=== PATIENT | male | born 1935 | race Hispanic/Latino ===

== ENCOUNTER 2022-11-26 14:41 | Inpatient (IN) | payer OTHER ==
[~2022-11-26] VITALS: Ht 182.9 cm; Wt 87.1 kg
[~2022-11-26 14:41] MED LIST: ALBU6.7H14 IH; APIX5TAB PO; CALCIUM; CARV12.511 PO; FERR324T PO; HYDR-4060 PO; LEVO100T12 PO; LOSA1TAB54 PO; PANT40TA54 PO; SOLI10TA7 PO; TAMS-1 PO; [UNRECOGNIZED DRUG - OTHER]
[2022-11-26] MEDS ORDERED: ALBUTEROL 0.083% 2.5 MG/3 ML INH IH ONE (15:30)
[2022-11-26 15:45] VITALS: PULSE 87; RESP 24
[2022-11-26 15:47] LABS: ABG BASE EXCESS 6.2 mmol/L (-2.0-3.0); ABG HCO3 35.8 mmol/L (21.0-28.0); ABG OXYGEN SATURATION 96.3 % (95.0-99.0); ABG PCO2 76 mmHg (35-48)
[2022-11-26 15:56] LABS: BASOPHILS % (AUTO) 0.2 % (0.0-5.0); EOSINOPHILS % (AUTO) 0.5 % (0.0-8.0); HEMATOCRIT 35.5 % (42-54); LYMPHOCYTES % (AUTO) 48.9 % (21.0-51.0); MEAN CORPUSCULAR HEMOGLOBIN 30.2 pg (27.0-33.0); MEAN CORPUSCULAR HGB CONC 32.1 g/dL (32.0-36.0); MEAN CORPUSCULAR VOLUME 93.9 fL (79-99); MONOCYTES % (AUTO) 5.4 % (3.0-13.0); NEUTROPHILS % (AUTO) 44.8 % (40.0-77.0); PLATELET COUNT (AUTO) 140 K/uL (130-400); RED BLOOD CELL COUNT(AUTO) 3.78 MIL/uL (4.50-6.20); RED CELL DISTRIBUTION WIDTH 15.4 % (11.0-15.5); WHITE BLOOD COUNT (AUTO) 12.3 K/uL (4.8-10.8)
[2022-11-26 16:14] LABS: B-TYPE NATRIURETIC PEPTIDE 481 pg/mL (0-100)
[2022-11-26 16:34] LABS: MAGNESIUM 1.7 mg/dL (1.80-2.40); THYROID STIMULATING HORMONE 5.38 uIU/mL (0.36-3.74)
[2022-11-26 16:55] LABS: ALBUMIN 2.8 g/dL (3.5-5.0); CREATININE 1.1 mg/dL (0.5-1.5); TOTAL PROTEIN, SERUM 5.8 g/dL (6.0-8.3)
[2022-11-26 17:15] LABS: ABG BASE EXCESS 6.1 mmol/L (-2.0-3.0); ABG HCO3 34.1 mmol/L (21.0-28.0); ABG OXYGEN SATURATION 88.4 % (95.0-99.0); ABG PCO2 64 mmHg (35-48)
[2022-11-26] MEDS ORDERED: POTASSIUM CHLORIDE 20MEQ/100ML 100 ML IV PRN (21:00)
[2022-11-26] MEDS ORDERED: FAMOTIDINE 20MG TAB PO SCH ×2 (21:00)
[2022-11-26] MEDS ORDERED: ACETAMINOPHEN 325 MG TAB PO PRN (21:00)
[2022-11-26] MEDS ORDERED: HEPARIN 5,000 UNIT VIAL SQ SCH (23:00)
[2022-11-26 23:03] VITALS: PULSE 89; RESP 23
[2022-11-26] MEDS: ALBUTEROL 0.083% 2.5 MG/3 ML INH IH SCH (23:03)
[2022-11-26 23:06] VITALS: PULSE 88; RESP 22; O2SAT 99
[2022-11-26] MEDS: CEFTRIAXONE 1G VIAL IVPB SCH (23:43)
[2022-11-27] VITALS (14 sets, daily range): BP systolic 114–137; BP diastolic 58–82; PULSE 71–85; RESP 17–24; O2SAT 91–100
[2022-11-27 02:57] LABS: APPEARANCE,URINE CLEAR (CLEAR); BILIRUBIN,URINE NEGATIVE (NEGATIVE); COLOR,URINE YELLOW (YELLOW); GLUCOSE, URINE (UA) NEGATIVE (NEGATIVE); KETONES,URINE NEGATIVE (NEGATIVE); LEUKOCYTE ESTERASE ,URINE NEGATIVE Leu/uL (NEGATIVE); NITRATE,URINE NEGATIVE (NEGATIVE); OCCULT BLOOD,URINE NEGATIVE (NEGATIVE); PH,URINE 5.5 (5.0-8.0); PROTEIN,URINE 10 mg/dL (NEGATIVE); UROBILINOGEN,URINE 0.2 mg/dL (0.2-1.0)
[2022-11-27] MEDS ORDERED: MOM30 PO (04:48)
[2022-11-27] MEDS ORDERED: LOSA1TAB37 PO (04:48)
[2022-11-27] MEDS ORDERED: TAMS-1 PO (04:48)
[2022-11-27] MEDS ORDERED: LEVO750T68 PO (04:48)
[2022-11-27] MEDS ORDERED: MIRT7.5T11 PO (04:48)
[2022-11-27] MEDS ORDERED: IPRA3AMP24 IH (04:48)
[2022-11-27] MEDS ORDERED: ACET-2247 PO (04:48)
[2022-11-27] MEDS ORDERED: CARV6.25 PO (04:48)
[2022-11-27] MEDS ORDERED: CALC-744 PO (04:48)
[2022-11-27] MEDS ORDERED: LEVO100C4 PO (04:48)
[2022-11-27] MEDS ORDERED: APIX2.5T PO (04:48)
[2022-11-27] MEDS ORDERED: MELA1TAB73 PO (04:48)
[2022-11-27] MEDS ORDERED: MULT-685 PO (04:48)
[2022-11-27 05:52] LABS: HEMATOCRIT 35.8 % (42-54); MEAN CORPUSCULAR HEMOGLOBIN 30.9 pg (27.0-33.0); MEAN CORPUSCULAR HGB CONC 32.4 g/dL (32.0-36.0); MEAN CORPUSCULAR VOLUME 95.5 fL (79-99); RED BLOOD CELL COUNT(AUTO) 3.75 MIL/uL (4.50-6.20); RED CELL DISTRIBUTION WIDTH 15.2 % (11.0-15.5)
[2022-11-27] MEDS: MAGNESIUM 2GM PREMIX 50ML 50 ML IV PRN (06:02)
[2022-11-27 06:12] LABS: ALBUMIN 2.7 g/dL (3.5-5.0); CREATININE 0.9 mg/dL (0.5-1.5); MAGNESIUM 1.7 mg/dL (1.80-2.40); POTASSIUM 4.1 mmol/L (3.5-5.1); TOTAL PROTEIN, SERUM 5.7 g/dL (6.0-8.3)
[2022-11-27 06:18] LABS: HEMOGLOBIN A1C 5.3 % (4.0-6.0)
[2022-11-27] MEDS: ALBUTEROL 0.083% 2.5 MG/3 ML INH IH SCH (06:49)
[2022-11-27] MEDS ORDERED: NON-FORMULARY MEDICATION 1 EACH (Levothyroxine Sodium (Levothyroxine) 100 MCG) PO SCH (07:30)
[2022-11-27] MEDS: CALCIUM CARB PO SCH ×2 (09:00→19:22)
[2022-11-27] MEDS ORDERED: NON-FORMULARY MEDICATION 1 EACH (Mirtazapine 7.5 MG) PO SCH (09:00)
[2022-11-27] MEDS ORDERED: MULTIVITAMIN WITH MINERALS PO SCH (09:00)
[2022-11-27] MEDS: VIT D3 PO SCH ×2 (09:00→19:22)
[2022-11-27] MEDS: MULTIVITAMIN WITH MINERALS TABLET PO SCH (09:00)
[2022-11-27] MEDS: MINERALS PO SCH ×2 (09:00→19:22)
[2022-11-27] MEDS: CARVEDILOL 6.25 MG TABLET PO SCH ×2 (09:01→21:05)
[2022-11-27] MEDS: PANTOPRAZOLE 40 MG/VIAL IVP SCH (09:02)
[2022-11-27] MEDS: TAMSULOSIN HCL 0.4 MG CAP.ER.24H PO SCH (09:02)
[2022-11-27 09:59] LABS: ABG BASE EXCESS 6.6 mmol/L (-2.0-3.0); ABG HCO3 34.5 mmol/L (21.0-28.0); ABG OXYGEN SATURATION 94.2 % (95.0-99.0); ABG PCO2 66 mmHg (35-48)
[2022-11-27] MEDS: DOXYCYCLINE 100MG+NS 250ML IV SCH ×2 (10:00→21:04)
[2022-11-27] MEDS: SOLU-MEDROL 40MG VIAL IVP SCH ×2 (10:00→18:09)
[2022-11-27] MEDS: BUDESONIDE 0.5 MG/2 ML INH IH SCH ×2 (10:22→18:55)
[2022-11-27] MEDS: IPRATROPIUM/ALBUTEROL SULFATE 3 ML SOLUTION IH SCH ×3 (11:08→23:26)
[2022-11-27 13:12] LABS: CHLORIDE,URINE RANDOM 70 mmol/L (110-250); CREATININE,URINE RANDOM 129 mg/dL (30-135); POTASSIUM,URINE RANDOM 45 mmol/L (25-125); SODIUM,URINE RANDOM 25 mmol/l (40-220)
[2022-11-27] MEDS: LOSARTAN 50 MG TABLET PO SCH (13:28)
[2022-11-27] MEDS ORDERED: BUDESONIDE 0.5 MG/2 ML INH IH SCH (18:00)
[2022-11-27] MEDS: PYRIDOXINE HCL PO SCH (19:22)
[2022-11-27] MEDS: MELATONIN PO SCH (19:22)
[2022-11-27] MEDS: APIXABAN 2.5 MG TABLET PO SCH (21:05)
[2022-11-27] MEDS: MIRTAZAPINE 15 MG TABLET PO SCH (21:07)
[2022-11-27] MEDS: CEFTRIAXONE 1G VIAL IVPB SCH (22:29)
[2022-11-27] MEDS: FUROSEMIDE 20MG VIAL IV SCH (22:29)
[2022-11-28] VITALS (14 sets, daily range): BP systolic 108–130; BP diastolic 62–80; PULSE 70–121; RESP 17–22; O2SAT 94–97
[2022-11-28] MEDS: SOLU-MEDROL 40MG VIAL IVP SCH ×3 (01:43→21:00)
[2022-11-28] MEDS: LEVOTHYROXINE 100 MCG TABLET PO SCH (05:43)
[2022-11-28] MEDS ORDERED: HALOPERIDOL INJ 5 MG/ML VIAL IM SCH (06:00)
[2022-11-28] MEDS ORDERED: HALOPERIDOL INJ 5 MG/ML VIAL IV SCH (06:00)
[2022-11-28] MEDS: IPRATROPIUM/ALBUTEROL SULFATE 3 ML SOLUTION IH SCH ×4 (06:32→23:03)
[2022-11-28] MEDS: BUDESONIDE 0.5 MG/2 ML INH IH SCH ×2 (06:34→18:34)
[2022-11-28 08:10] LABS: HEMATOCRIT 38.7 % (42-54); MEAN CORPUSCULAR HEMOGLOBIN 30.3 pg (27.0-33.0); MEAN CORPUSCULAR HGB CONC 32.3 g/dL (32.0-36.0); MEAN CORPUSCULAR VOLUME 93.9 fL (79-99); PLATELET COUNT (AUTO) 128 K/uL (130-400); RED BLOOD CELL COUNT(AUTO) 4.12 MIL/uL (4.50-6.20); RED CELL DISTRIBUTION WIDTH 15.1 % (11.0-15.5); WHITE BLOOD COUNT (AUTO) 11.6 K/uL (4.8-10.8)
[2022-11-28 08:37] LABS: MAGNESIUM 1.7 mg/dL (1.80-2.40); PHOSPHORUS 2.9 mg/dL (2.5-4.9); POTASSIUM 3.8 mmol/L (3.5-5.1); TOTAL PROTEIN, SERUM 6.2 g/dL (6.0-8.3)
[2022-11-28] MEDS: VIT D3 PO SCH ×2 (08:58→19:15)
[2022-11-28] MEDS: MINERALS PO SCH ×2 (08:58→19:15)
[2022-11-28] MEDS: CALCIUM CARB PO SCH ×2 (08:58→19:15)
[2022-11-28 09:01] LABS: LYMPHOCYTES % (MANUAL) 54 % (22-44); MAN.DIFF COMMENT-IMPRESSION MANUAL DIFFERENTIAL; MONOCYTES % (MANUAL) 2 % (2-9); REACTIVE LYMPHOCYTES 10 % (0-0); SEGMENTED NEUTROPHILS % 34 % (40-70)
[2022-11-28 09:03] LABS: PLATELET MORPHOLOGY COMMENT SLIGHTLY DECREASED
[2022-11-28] MEDS: APIXABAN 2.5 MG TABLET PO SCH ×2 (09:08→19:45)
[2022-11-28] MEDS: LOSARTAN 50 MG TABLET PO SCH (09:08)
[2022-11-28] MEDS: MULTIVITAMIN WITH MINERALS TABLET PO SCH (09:08)
[2022-11-28] MEDS: CARVEDILOL 6.25 MG TABLET PO SCH ×2 (09:09→19:45)
[2022-11-28] MEDS: DOXYCYCLINE 100MG+NS 250ML IV SCH ×2 (09:09→19:43)
[2022-11-28] MEDS: TAMSULOSIN HCL 0.4 MG CAP.ER.24H PO SCH (09:09)
[2022-11-28] MEDS: PANTOPRAZOLE 40 MG/VIAL IVP SCH (09:10)
[2022-11-28] MEDS: FUROSEMIDE 20MG VIAL IV SCH ×2 (09:10→21:00)
[2022-11-28] MEDS ORDERED: MAGNESIUM 2GM PREMIX 50ML 50 ML IV SCH (12:30)
[2022-11-28] MEDS: MAGNESIUM 2GM PREMIX 50ML 50 ML IV PRN (16:51)
[2022-11-28] MEDS: PYRIDOXINE HCL PO SCH (19:15)
[2022-11-28] MEDS: MELATONIN PO SCH (19:15)
[2022-11-28] MEDS: MIRTAZAPINE 15 MG TABLET PO SCH (19:44)
[2022-11-28] MEDS: CEFTRIAXONE 1G VIAL IVPB SCH (23:06)
[2022-11-29] VITALS (17 sets, daily range): BP systolic 101–132; BP diastolic 64–86; PULSE 57–107; RESP 16–18; O2SAT 92–98
[2022-11-29 05:06] LABS: HEMATOCRIT 37.4 % (42-54); MEAN CORPUSCULAR HEMOGLOBIN 30.3 pg (27.0-33.0); MEAN CORPUSCULAR HGB CONC 32.4 g/dL (32.0-36.0); MEAN CORPUSCULAR VOLUME 93.7 fL (79-99); RED BLOOD CELL COUNT(AUTO) 3.99 MIL/uL (4.50-6.20); RED CELL DISTRIBUTION WIDTH 15.5 % (11.0-15.5); WHITE BLOOD COUNT (AUTO) 16.5 K/uL (4.8-10.8)
[2022-11-29 05:29] LABS: ALBUMIN 2.8 g/dL (3.5-5.0); CREATININE 1.1 mg/dL (0.5-1.5); MAGNESIUM 1.6 mg/dL (1.80-2.40); PHOSPHORUS 2.8 mg/dL (2.5-4.9); POTASSIUM 3.5 mmol/L (3.5-5.1); TOTAL PROTEIN, SERUM 5.6 g/dL (6.0-8.3)
[2022-11-29] MEDS: LEVOTHYROXINE 100 MCG TABLET PO SCH (06:05)
[2022-11-29] MEDS: KCL 20 MEQ ERTAB PO PRN ×2 (06:07→08:35)
[2022-11-29] MEDS: MAGNESIUM 2GM PREMIX 50ML 50 ML IV PRN (06:07)
[2022-11-29] MEDS: BUDESONIDE 0.5 MG/2 ML INH IH SCH ×2 (07:02→18:33)
[2022-11-29] MEDS: IPRATROPIUM/ALBUTEROL SULFATE 3 ML SOLUTION IH SCH ×4 (07:02→23:11)
[2022-11-29] MEDS: MULTIVITAMIN WITH MINERALS TABLET PO SCH (08:33)
[2022-11-29] MEDS: LOSARTAN 50 MG TABLET PO SCH (08:33)
[2022-11-29] MEDS: SOLU-MEDROL 40MG VIAL IVP SCH (08:33)
[2022-11-29] MEDS: DOXYCYCLINE 100MG+NS 250ML IV SCH ×2 (08:33→20:08)
[2022-11-29] MEDS: PANTOPRAZOLE 40 MG/VIAL IVP SCH (08:33)
[2022-11-29] MEDS: APIXABAN 2.5 MG TABLET PO SCH ×2 (08:34→20:08)
[2022-11-29] MEDS: TAMSULOSIN HCL 0.4 MG CAP.ER.24H PO SCH (08:35)
[2022-11-29] MEDS: CARVEDILOL 6.25 MG TABLET PO SCH ×2 (08:39→20:07)
[2022-11-29] MEDS: VIT D3 PO SCH ×2 (08:48→20:10)
[2022-11-29] MEDS: MINERALS PO SCH ×2 (08:48→20:10)
[2022-11-29] MEDS: CALCIUM CARB PO SCH ×2 (08:48→20:10)
[2022-11-29] MEDS: FUROSEMIDE 20MG VIAL IV SCH ×2 (10:36→21:05)
[2022-11-29] MEDS ORDERED: KCL 20 MEQ ERTAB PO ONE (11:30)
[2022-11-29] MEDS ORDERED: MAGNESIUM 2GM PREMIX 50ML 50 ML IV SCH (11:30)
[2022-11-29] MEDS: BALSAM PERU/CASTOR OIL 60 GM TUBE TP SCH (20:08)
[2022-11-29] MEDS: MIRTAZAPINE 15 MG TABLET PO SCH (20:08)
[2022-11-29] MEDS: MELATONIN PO SCH (20:10)
[2022-11-29] MEDS: PYRIDOXINE HCL PO SCH (20:10)
[2022-11-29] MEDS: CEFTRIAXONE 1G VIAL IVPB SCH (21:05)
[2022-11-30] VITALS (11 sets, daily range): BP systolic 115–132; BP diastolic 77–94; PULSE 60–92; RESP 18–28; O2SAT 91–98
[2022-11-30 05:14] LABS: MEAN CORPUSCULAR HEMOGLOBIN 30.2 pg (27.0-33.0); MEAN CORPUSCULAR HGB CONC 32.4 g/dL (32.0-36.0); MEAN CORPUSCULAR VOLUME 93.4 fL (79-99); RED BLOOD CELL COUNT(AUTO) 4.07 MIL/uL (4.50-6.20); RED CELL DISTRIBUTION WIDTH 15.8 % (11.0-15.5); WHITE BLOOD COUNT (AUTO) 14.6 K/uL (4.8-10.8)
[2022-11-30 05:31] LABS: ALBUMIN 2.8 g/dL (3.5-5.0); CREATININE 1.2 mg/dL (0.5-1.5); MAGNESIUM 1.9 mg/dL (1.80-2.40); POTASSIUM 3.2 mmol/L (3.5-5.1); TOTAL PROTEIN, SERUM 5.5 g/dL (6.0-8.3)
[2022-11-30] MEDS: POTASSIUM CHLORIDE 10% ELIXIR 20 MEQ/15 ML UDCUP PO PRN ×3 (05:47→11:41)
[2022-11-30] MEDS: MAGNESIUM 2GM PREMIX 50ML 50 ML IV PRN (05:47)
[2022-11-30] MEDS: LEVOTHYROXINE 100 MCG TABLET PO SCH (05:51)
[2022-11-30] MEDS: BUDESONIDE 0.5 MG/2 ML INH IH SCH ×2 (07:12→18:28)
[2022-11-30] MEDS: IPRATROPIUM/ALBUTEROL SULFATE 3 ML SOLUTION IH SCH ×3 (07:12→23:10)
[2022-11-30] MEDS: DOXYCYCLINE 100MG+NS 250ML IV SCH ×2 (08:31→21:50)
[2022-11-30] MEDS: LOSARTAN 50 MG TABLET PO SCH (08:33)
[2022-11-30] MEDS: MULTIVITAMIN WITH MINERALS TABLET PO SCH (08:33)
[2022-11-30] MEDS: APIXABAN 2.5 MG TABLET PO SCH ×2 (08:33→20:39)
[2022-11-30] MEDS: PREDNISONE 20 MG TABLET PO SCH (08:33)
[2022-11-30] MEDS: TAMSULOSIN HCL 0.4 MG CAP.ER.24H PO SCH (08:33)
[2022-11-30] MEDS: CARVEDILOL 6.25 MG TABLET PO SCH ×2 (08:34→20:39)
[2022-11-30] MEDS: FLUCONAZOLE 100 MG TAB PO SCH (08:34)
[2022-11-30] MEDS: BALSAM PERU/CASTOR OIL 60 GM TUBE TP SCH ×2 (08:35→21:12)
[2022-11-30] MEDS: FUROSEMIDE 20MG VIAL IV SCH ×2 (08:35→21:50)
[2022-11-30] MEDS: PANTOPRAZOLE 40 MG/VIAL IVP SCH (08:35)
[2022-11-30] MEDS: CALCIUM CARB PO SCH ×2 (09:00→21:00)
[2022-11-30] MEDS: VIT D3 PO SCH ×2 (09:00→21:00)
[2022-11-30] MEDS: MINERALS PO SCH ×2 (09:00→21:00)
[2022-11-30] MEDS: MIRTAZAPINE 15 MG TABLET PO SCH (20:39)
[2022-11-30] MEDS: PYRIDOXINE HCL PO SCH (21:00)
[2022-11-30] MEDS: MELATONIN PO SCH (21:00)
[2022-11-30] MEDS: CEFTRIAXONE 1G VIAL IVPB SCH (23:07)
[2022-12-01] VITALS (13 sets, daily range): BP systolic 91–145; BP diastolic 53–99; PULSE 52–91; RESP 16–28; O2SAT 93–98
[2022-12-01 04:11] LABS: ALBUMIN 2.9 g/dL (3.5-5.0); CREATININE 1.1 mg/dL (0.5-1.5); TOTAL PROTEIN, SERUM 5.7 g/dL (6.0-8.3)
[2022-12-01] MEDS: LEVOTHYROXINE 100 MCG TABLET PO SCH (06:38)
[2022-12-01] MEDS: BUDESONIDE 0.5 MG/2 ML INH IH SCH ×2 (07:26→18:21)
[2022-12-01] MEDS: IPRATROPIUM/ALBUTEROL SULFATE 3 ML SOLUTION IH SCH ×3 (07:26→18:21)
[2022-12-01] MEDS: CALCIUM CARB PO SCH ×2 (07:32→20:33)
[2022-12-01] MEDS: VIT D3 PO SCH ×2 (07:32→20:33)
[2022-12-01] MEDS: MINERALS PO SCH ×2 (07:32→20:33)
[2022-12-01] MEDS: PREDNISONE 20 MG TABLET PO SCH (09:27)
[2022-12-01] MEDS: FLUCONAZOLE 100 MG TAB PO SCH (09:27)
[2022-12-01] MEDS: LOSARTAN 50 MG TABLET PO SCH (09:28)
[2022-12-01] MEDS: MULTIVITAMIN WITH MINERALS TABLET PO SCH (09:28)
[2022-12-01] MEDS: CARVEDILOL 6.25 MG TABLET PO SCH ×2 (09:28→20:32)
[2022-12-01] MEDS: TAMSULOSIN HCL 0.4 MG CAP.ER.24H PO SCH (09:28)
[2022-12-01] MEDS: PANTOPRAZOLE 40 MG/VIAL IVP SCH (09:28)
[2022-12-01] MEDS: APIXABAN 2.5 MG TABLET PO SCH ×2 (09:28→20:33)
[2022-12-01] MEDS: FUROSEMIDE 20MG VIAL IV SCH (09:29)
[2022-12-01] MEDS: BALSAM PERU/CASTOR OIL 60 GM TUBE TP SCH ×2 (09:29→20:34)
[2022-12-01] MEDS: DOXYCYCLINE 100MG+NS 250ML IV SCH ×2 (09:29→20:33)
[2022-12-01] MEDS: FUROSEMIDE 20 MG TABLET PO SCH (17:57)
[2022-12-01] MEDS: MIRTAZAPINE 15 MG TABLET PO SCH (20:33)
[2022-12-01] MEDS: MELATONIN PO SCH (20:33)
[2022-12-01] MEDS: PYRIDOXINE HCL PO SCH (20:33)
[2022-12-01] MEDS: CEFTRIAXONE 1G VIAL IVPB SCH (23:10)
[2022-12-02] VITALS (13 sets, daily range): BP systolic 91–135; BP diastolic 47–78; PULSE 52–108; RESP 18–20; O2SAT 89–98
[2022-12-02] MEDS: IPRATROPIUM/ALBUTEROL SULFATE 3 ML SOLUTION IH SCH ×4 (00:04→18:00)
[2022-12-02] MEDS: BUDESONIDE 0.5 MG/2 ML INH IH SCH ×2 (06:18→18:00)
[2022-12-02] MEDS: LEVOTHYROXINE 100 MCG TABLET PO SCH (06:35)
[2022-12-02] MEDS: LOSARTAN 50 MG TABLET PO SCH (09:00)
[2022-12-02] MEDS: FUROSEMIDE 20 MG TABLET PO SCH ×3 (09:00→17:13)
[2022-12-02] MEDS: CARVEDILOL 6.25 MG TABLET PO SCH ×2 (09:00→20:29)
[2022-12-02] MEDS: FLUCONAZOLE 100 MG TAB PO SCH (09:53)
[2022-12-02] MEDS: APIXABAN 2.5 MG TABLET PO SCH ×2 (09:54→20:30)
[2022-12-02] MEDS: DOXYCYCLINE 100MG+NS 250ML IV SCH ×2 (09:54→20:30)
[2022-12-02] MEDS: MULTIVITAMIN WITH MINERALS TABLET PO SCH (09:54)
[2022-12-02] MEDS: TAMSULOSIN HCL 0.4 MG CAP.ER.24H PO SCH (17:13)
[2022-12-02] MEDS: PREDNISONE 20 MG TABLET PO SCH (17:13)
[2022-12-02] MEDS: PANTOPRAZOLE 40 MG/VIAL IVP SCH (17:14)
[2022-12-02] MEDS: BALSAM PERU/CASTOR OIL 60 GM TUBE TP SCH ×2 (20:30→21:00)
[2022-12-02] MEDS: MIRTAZAPINE 15 MG TABLET PO SCH (20:30)
[2022-12-02] MEDS: MINERALS PO SCH (20:31)
[2022-12-02] MEDS: CALCIUM CARB PO SCH (20:31)
[2022-12-02] MEDS: PYRIDOXINE HCL PO SCH (20:31)
[2022-12-02] MEDS: MELATONIN PO SCH (20:31)
[2022-12-02] MEDS: VIT D3 PO SCH (20:31)
[2022-12-02] MEDS: CEFTRIAXONE 1G VIAL IVPB SCH (22:49)
[2022-12-03] VITALS (12 sets, daily range): BP systolic 116–137; BP diastolic 53–93; PULSE 56–88; RESP 16–20; O2SAT 91–95
[2022-12-03] MEDS: LEVOTHYROXINE 100 MCG TABLET PO SCH (06:05)
[2022-12-03] MEDS: BUDESONIDE 0.5 MG/2 ML INH IH SCH ×2 (06:30→18:37)
[2022-12-03] MEDS: IPRATROPIUM/ALBUTEROL SULFATE 3 ML SOLUTION IH SCH ×4 (06:30→18:37)
[2022-12-03] MEDS: ACETAMINOPHEN 325 MG TAB PO PRN ×2 (06:52→22:43)
[2022-12-03] MEDS: MULTIVITAMIN WITH MINERALS TABLET PO SCH (08:31)
[2022-12-03] MEDS: PANTOPRAZOLE 40 MG/VIAL IVP SCH (08:31)
[2022-12-03] MEDS: DOXYCYCLINE 100MG+NS 250ML IV SCH ×2 (08:31→22:37)
[2022-12-03] MEDS: FLUCONAZOLE 100 MG TAB PO SCH (08:31)
[2022-12-03] MEDS: TAMSULOSIN HCL 0.4 MG CAP.ER.24H PO SCH (08:32)
[2022-12-03] MEDS: PREDNISONE 20 MG TABLET PO SCH (08:32)
[2022-12-03] MEDS: LOSARTAN 50 MG TABLET PO SCH (08:32)
[2022-12-03] MEDS: APIXABAN 2.5 MG TABLET PO SCH ×2 (08:32→22:38)
[2022-12-03] MEDS: CARVEDILOL 6.25 MG TABLET PO SCH ×2 (08:33→22:38)
[2022-12-03 08:34] LABS: POTASSIUM 3.8 mmol/L (3.5-5.1)
[2022-12-03] MEDS: FUROSEMIDE 20 MG TABLET PO SCH ×2 (08:35→17:43)
[2022-12-03 08:55] LABS: EOSINOPHILS % (MANUAL) 1 % (1-6); LYMPHOCYTES % (MANUAL) 54 % (22-44); MAN.DIFF COMMENT-IMPRESSION MANUAL DIFFERENTIAL; MONOCYTES % (MANUAL) 1 % (2-9); PLATELET MORPHOLOGY COMMENT ADEQUATE; SEGMENTED NEUTROPHILS % 44 % (40-70)
[2022-12-03] MEDS: BALSAM PERU/CASTOR OIL 60 GM TUBE TP SCH ×2 (09:00→22:39)
[2022-12-03 09:02] LABS: HEMATOCRIT 40.3 % (42-54); MEAN CORPUSCULAR HEMOGLOBIN 30.2 pg (27.0-33.0); MEAN CORPUSCULAR HGB CONC 31.8 g/dL (32.0-36.0); NUCLEATED RED BLOOD CELLS 0.2 % (0.0-0.19); PLATELET COUNT (AUTO) 124 K/uL (130-400); RED BLOOD CELL COUNT(AUTO) 4.24 MIL/uL (4.50-6.20); RED CELL DISTRIBUTION WIDTH 15.8 % (11.0-15.5); WHITE BLOOD COUNT (AUTO) 17.8 K/uL (4.8-10.8)
[2022-12-03] MEDS: MINERALS PO SCH (21:00)
[2022-12-03] MEDS: CALCIUM CARB PO SCH (21:00)
[2022-12-03] MEDS: VIT D3 PO SCH (21:00)
[2022-12-03] MEDS: MELATONIN PO SCH (21:00)
[2022-12-03] MEDS: PYRIDOXINE HCL PO SCH (21:00)
[2022-12-03] MEDS: MIRTAZAPINE 15 MG TABLET PO SCH (22:38)
[2022-12-04] VITALS (10 sets, daily range): BP systolic 128–141; BP diastolic 71–83; PULSE 71–85; RESP 16–22; O2SAT 94–97
[2022-12-04] MEDS: CEFTRIAXONE 1G VIAL IVPB SCH ×2 (00:38→23:46)
[2022-12-04 05:02] LABS: HEMATOCRIT 38.2 % (42-54); MEAN CORPUSCULAR HEMOGLOBIN 29.8 pg (27.0-33.0); MEAN CORPUSCULAR HGB CONC 32.5 g/dL (32.0-36.0); MEAN CORPUSCULAR VOLUME 91.8 fL (79-99); PLATELET COUNT (AUTO) 122 K/uL (130-400); RED BLOOD CELL COUNT(AUTO) 4.16 MIL/uL (4.50-6.20); RED CELL DISTRIBUTION WIDTH 15.4 % (11.0-15.5); WHITE BLOOD COUNT (AUTO) 17.8 K/uL (4.8-10.8)
[2022-12-04 05:14] LABS: CREATININE 0.9 mg/dL (0.5-1.5); POTASSIUM 3.9 mmol/L (3.5-5.1)
[2022-12-04 06:21] LABS: BAND NEUTROPHILS % (MANUAL) 1 % (0-2); EOSINOPHILS % (MANUAL) 1 % (1-6); LYMPHOCYTES % (MANUAL) 50 % (22-44); MAN.DIFF COMMENT-IMPRESSION MANUAL DIFFERENTIAL; MONOCYTES % (MANUAL) 3 % (2-9); REACTIVE LYMPHOCYTES 2 % (0-0); SEGMENTED NEUTROPHILS % 43 % (40-70)
[2022-12-04 06:22] LABS: PLATELET MORPHOLOGY COMMENT SLIGHTLY DECREASED
[2022-12-04] MEDS: IPRATROPIUM/ALBUTEROL SULFATE 3 ML SOLUTION IH SCH ×4 (06:22→19:20)
[2022-12-04] MEDS: BUDESONIDE 0.5 MG/2 ML INH IH SCH ×2 (06:22→19:19)
[2022-12-04] MEDS: LEVOTHYROXINE 100 MCG TABLET PO SCH (06:46)
[2022-12-04] MEDS: VIT D3 PO SCH ×2 (09:00→21:00)
[2022-12-04] MEDS: CALCIUM CARB PO SCH ×2 (09:00→21:00)
[2022-12-04] MEDS: MINERALS PO SCH ×2 (09:00→21:00)
[2022-12-04] MEDS: PANTOPRAZOLE 40 MG/VIAL IVP SCH (09:00)
[2022-12-04] MEDS: PREDNISONE 20 MG TABLET PO SCH (09:56)
[2022-12-04] MEDS: FLUCONAZOLE 100 MG TAB PO SCH (09:56)
[2022-12-04] MEDS: CARVEDILOL 6.25 MG TABLET PO SCH ×2 (09:56→21:22)
[2022-12-04] MEDS: MULTIVITAMIN WITH MINERALS TABLET PO SCH (09:56)
[2022-12-04] MEDS: LOSARTAN 50 MG TABLET PO SCH (09:57)
[2022-12-04] MEDS: TAMSULOSIN HCL 0.4 MG CAP.ER.24H PO SCH (09:57)
[2022-12-04] MEDS: APIXABAN 2.5 MG TABLET PO SCH ×2 (09:57→21:21)
[2022-12-04] MEDS: BALSAM PERU/CASTOR OIL 60 GM TUBE TP SCH ×2 (09:57→21:23)
[2022-12-04] MEDS: DOXYCYCLINE 100MG+NS 250ML IV SCH ×2 (09:57→21:23)
[2022-12-04] MEDS: FUROSEMIDE 20 MG TABLET PO SCH (17:26)
[2022-12-04] MEDS: PYRIDOXINE HCL PO SCH (21:00)
[2022-12-04] MEDS: MELATONIN PO SCH (21:00)
[2022-12-04] MEDS: MIRTAZAPINE 15 MG TABLET PO SCH (21:21)
[2022-12-05] VITALS (8 sets, daily range): BP systolic 131–147; BP diastolic 91–98; PULSE 71–101; RESP 17–20; O2SAT 95–97
[2022-12-05] MEDS: LEVOTHYROXINE 100 MCG TABLET PO SCH (06:01)
[2022-12-05] MEDS: BUDESONIDE 0.5 MG/2 ML INH IH SCH (06:30)
[2022-12-05] MEDS: IPRATROPIUM/ALBUTEROL SULFATE 3 ML SOLUTION IH SCH ×2 (06:30→11:20)
[2022-12-05] MEDS: VIT D3 PO SCH (09:00)
[2022-12-05] MEDS: MINERALS PO SCH (09:00)
[2022-12-05] MEDS: CALCIUM CARB PO SCH (09:00)
[2022-12-05] MEDS: APIXABAN 2.5 MG TABLET PO SCH (10:59)
[2022-12-05] MEDS: FLUCONAZOLE 100 MG TAB PO SCH (10:59)
[2022-12-05] MEDS: PANTOPRAZOLE 40 MG/VIAL IVP SCH (10:59)
[2022-12-05] MEDS: LOSARTAN 50 MG TABLET PO SCH (10:59)
[2022-12-05] MEDS: DOXYCYCLINE 100MG+NS 250ML IV SCH (10:59)
[2022-12-05] MEDS: FUROSEMIDE 20 MG TABLET PO SCH (10:59)
[2022-12-05] MEDS: TAMSULOSIN HCL 0.4 MG CAP.ER.24H PO SCH (10:59)
[2022-12-05] MEDS: MULTIVITAMIN WITH MINERALS TABLET PO SCH (11:00)
[2022-12-05] MEDS: BALSAM PERU/CASTOR OIL 60 GM TUBE TP SCH (11:00)
[2022-12-05] MEDS: CARVEDILOL 6.25 MG TABLET PO SCH (11:00)
== END 2022-12-05 13:34 | DRG 640 ==
LOC: EDH 14:41 → EDHIP 20:41 → 4BH 11-27 08:14 → 3AH 11-28 20:49
PROVIDERS: ADMIT Hospitalist; ATTEND Hospitalist
DX: E87.1 Hypo-osmolality and hyponatremia (principal); G92.8 Other toxic encephalopathy; J96.22 Acute and chronic respiratory failure with hypercapnia; I50.43 Acute on chronic combined systolic (congestive) and diastolic (congestive) heart failure; J96.21 Acute and chronic respiratory failure with hypoxia; J44.1 Chronic obstructive pulmonary disease with (acute) exacerbation; E44.0 Moderate protein-calorie malnutrition; I11.0 Hypertensive heart disease with heart failure; E87.3 Alkalosis; Z20.822 Contact with and (suspected) exposure to COVID-19; Z68.24 Body mass index [BMI] 24.0-24.9, adult; S41.111A Laceration without foreign body of right upper arm, initial encounter; I48.91 Unspecified atrial fibrillation; T50.2X5A Adverse effect of carbonic-anhydrase inhibitors, benzothiadiazides and other diuretics, initial encounter; D72.829 Elevated white blood cell count, unspecified; K21.00 Gastro-esophageal reflux disease with esophagitis, without bleeding; E78.5 Hyperlipidemia, unspecified; E83.42 Hypomagnesemia; E89.0 Postprocedural hypothyroidism; X58.XXXA Exposure to other specified factors, initial encounter; F03.90 Unspecified dementia, unspecified severity, without behavioral disturbance, psychotic disturbance, mood disturbance, and anxiety; Z96.649 Presence of unspecified artificial hip joint; I25.10 Atherosclerotic heart disease of native coronary artery without angina pectoris; Z87.891 Personal history of nicotine dependence; Z79.01 Long term (current) use of anticoagulants; Z95.810 Presence of automatic (implantable) cardiac defibrillator
CPT/HCPCS: 36415; 36600; 70450; 71045; 71250; 76705; 80048; 80051; 80053; 81003; 82140; 82435; 82550; 82570; 82803; 82947; 83036; 83605; 83735; 83880; 83930; 83935; 84100; 84132; 84145; 84295; 84439; 84443; 84481; 84484; 84550; 85018; 85025; 85027; 85378; 85651; 86140; 87071; 87205; 87635; 92610; 93005; 93306; 93970; 94640; 94664; 94760; 97039; C9113; G0378; J0696; J1630; J1644; J1940; J2920; J3475; J3490